=== PATIENT | female | born 1965 | race Caucasian/White ===

== ENCOUNTER → 2018-08-17 | Outpatient (CLI) | payer BC ==
[~2018-08-17] MED LIST: ALKA-SELTZER GO1 TE1 PO; ASPIRIN 81M81 MG/TA2 PO; CLARITIN-D 10 M1 T24 PO; IBU400 MG PO; MACRODANTIN100; MACRODANTIN100 PO; MUCINEX DM 30 M1 TE1; PRIL40 PO; PYRIDIUM 100MG100 MG PO; TESSALON PERLE200 MG PO; TYLENOL 500MG500 MG PO; VENTOLIN0.09 MG IH
== END ==
LOC: MC.RAD 07:18
DX: Z12.31 Encounter for screening mammogram for malignant neoplasm of breast (principal)

== ENCOUNTER → 2018-12-12 | Outpatient (CLI) | payer BC | LOC: COL.RAD 10:02 | DX: N20.0 Calculus of kidney (principal); N30.20 Other chronic cystitis without hematuria ==

== ENCOUNTER 2021-08-08 18:25 | Emergency (ER) | payer BC ==
[~2021-08-08] VITALS: Ht 160 cm; Wt 109.1 kg
[2021-08-08 18:55] VITALS: TEMP 98.3
[2021-08-08] MEDS ORDERED: PREDNISONE20 MG PO (20:56)
[2021-08-08] MEDS ORDERED: TESSALON P100 MG/CAP PO (20:59)
[2021-08-08 21:12] VITALS: BP 181/97; PULSE 82
[2021-08-08] MEDS ORDERED: CLEVER CHOICE1 EA20 MC (21:53)
== END 2021-08-08 21:12 | disposition home or self-care (01) ==
LOC: COL.ER 18:25
DX: R06.02 Shortness of breath (principal); R05.9 Cough, unspecified; R06.2 Wheezing; K21.9 Gastro-esophageal reflux disease without esophagitis; Z20.822 Contact with and (suspected) exposure to COVID-19; Z79.899 Other long term (current) drug therapy